=== PATIENT | male | born 1930 | race Caucasian/White ===

== ENCOUNTER 2018-01-05 08:07 | Inpatient (IN) | payer MEDICARE ==
[~2018-01-05] VITALS: Ht 170.2 cm; Wt 68.0 kg
[2018-01-05 08:32] LABS: BASOPHILS % (AUTO) 0.4 % (0.0-5.0); HEMATOCRIT 37.7 % (42-54); LYMPHOCYTES % (AUTO) 5.4 % (21.0-51.0); MEAN CORPUSCULAR HEMOGLOBIN 31.1 pg (27.0-33.0); MEAN CORPUSCULAR HGB CONC 35.1 g/dL (32.0-36.0); MEAN CORPUSCULAR VOLUME 88.8 fL (79-99); MONOCYTES % (AUTO) 6.9 % (3.0-13.0); NEUTROPHILS % (AUTO) 86.3 % (40.0-77.0); PLATELET COUNT (AUTO) 272 K/uL (130-400); RED BLOOD CELL COUNT(AUTO) 4.25 MIL/uL (4.50-6.20); RED CELL DISTRIBUTION WIDTH 13.5 % (11.0-15.5); WHITE BLOOD COUNT (AUTO) 10.7 K/uL (4.8-10.8)
[2018-01-05 08:51] LABS: CREATININE 1.7 mg/dL (0.5-1.5); POTASSIUM 4.2 mmol/L (3.5-5.1)
[2018-01-05 09:05] LABS: ALBUMIN 2.6 g/dL (3.5-5.0); BILIRUBIN,TOTAL 0.4 mg/dL (0.2-1.0); TOTAL PROTEIN, SERUM 6.3 g/dL (6.0-8.3)
[2018-01-05 09:49] LABS: CREATINE KINASE MB 0.8 ng/mL (0.5-3.6)
[2018-01-05] MEDS ORDERED: LEVOFLOXACIN 750 MG/D5W 150 ML 150 ML ONE (11:52)
[2018-01-05] MEDS ORDERED: IPRATROPIUM/ALBUTEROL SULFATE 3 ML SOLUTION IH ONE (12:31)
[2018-01-05] MEDS ORDERED: DOXYCYCLINE 100MG+NS 250ML 250 ML IV ONE (13:34)
[2018-01-05] MEDS ORDERED: METHYLPREDNISOLONE SOD SUCC 40MG/ML 1ML ONE (13:34)
[2018-01-05] MEDS ORDERED: ACETAMINOPHEN-CODEINE 300/30MG TAB PO PRN ×2 (14:00)
[2018-01-05] MEDS ORDERED: GUAIFENESIN-DM 200/20 MG 10 ML PO PRN (14:00)
[2018-01-05] MEDS ORDERED: ONDANSETRON HCL 4 MG/2 ML VIAL IV PRN (14:00)
[2018-01-05] MEDS ORDERED: HYDRALAZINE HCL 20 MG/ML VIAL IV PRN (14:00)
[2018-01-05] MEDS ORDERED: MORPHINE SULFATE 2 MG/ML 1ML SYG IV PRN (14:00)
[2018-01-05] MEDS: METHYLPREDNISOLONE SOD SUCC 125MG/2ML VIAL IV SCH ×2 (14:00→22:08)
[2018-01-05] MEDS ORDERED: ACETAMINOPHEN 325 MG TAB PO PRN ×2 (14:00)
[2018-01-05] MEDS ORDERED: MORPHINE SULFATE 4 MG/1ML SYG IV PRN (14:00)
[2018-01-05] MEDS ORDERED: LACTULOSE 20 GM/30 ML UDCUP PO PRN (14:00)
[2018-01-05] MEDS ORDERED: NITROGLYCERIN 0.4 MG SL TAB SL PRN (14:00)
[2018-01-05] MEDS ORDERED: MAG HYDROX/AL HYDROX/SIMETH ES 30 ML SUSP UDCUP PO PRN (14:00)
[2018-01-05] MEDS ORDERED: SODIUM CHLORIDE 0.9% 1000ML 1,000 ML IV SCH (14:56)
[2018-01-05] MEDS ORDERED: POTASSIUM CHLORIDE 10% ELIXIR 20 MEQ/15 ML UDCUP PO PRN (15:00)
[2018-01-05] MEDS ORDERED: POTASSIUM CHLORIDE 20MEQ/100ML 100 ML IV PRN (15:00)
[2018-01-05] MEDS ORDERED: LIDOCAINE HCL-MPF 1% 2ML VIAL IVP PRN (15:00)
[2018-01-05] MEDS ORDERED: POTASSIUM CHLORIDE 20 MEQ ERTAB PO PRN (15:00)
[2018-01-05 16:55] VITALS: BP 153/77
[2018-01-05] MEDS ORDERED: LISI-613 PO (16:56)
[2018-01-05] MEDS ORDERED: ALLO100T PO (16:56)
[2018-01-05] MEDS ORDERED: ASPI-1197 PO (16:56)
[2018-01-05] MEDS ORDERED: ROSU20TA PO (16:56)
[2018-01-05] MEDS ORDERED: TAMS0.4C32 PO (16:56)
[2018-01-05] MEDS ORDERED: AMLO5TAB2 PO (16:56)
[2018-01-05] MEDS ORDERED: METO25TA6 PO (16:56)
[2018-01-05] MEDS: IPRATROPIUM/ALBUTEROL SULFATE 3 ML SOLUTION IH SCH ×2 (19:18→23:57)
[2018-01-05 19:51] VITALS: BP 149/91
[2018-01-05 23:41] VITALS: BP 117/69
[2018-01-05] MEDS: ACETYLCYSTEINE 20% 200MG/ML 4ML VIAL IH SCH (23:57)
[2018-01-06] MEDS ORDERED: DOXYCYCLINE 100MG+NS 250ML 250 ML IV SCH
[2018-01-06 04:31] VITALS: BP 124/71
[2018-01-06 05:33] LABS: HEMATOCRIT 36.2 % (42-54); MEAN CORPUSCULAR HEMOGLOBIN 29.9 pg (27.0-33.0); MEAN CORPUSCULAR HGB CONC 33.6 g/dL (32.0-36.0); PLATELET COUNT (AUTO) 295 K/uL (130-400); RED BLOOD CELL COUNT(AUTO) 4.07 MIL/uL (4.50-6.20); RED CELL DISTRIBUTION WIDTH 13.8 % (11.0-15.5); WHITE BLOOD COUNT (AUTO) 11.6 K/uL (4.8-10.8)
[2018-01-06 05:35] LABS: CREATININE 1.7 mg/dL (0.5-1.5); POTASSIUM 3.9 mmol/L (3.5-5.1)
[2018-01-06] MEDS: METHYLPREDNISOLONE SOD SUCC 125MG/2ML VIAL IV SCH (05:56)
[2018-01-06] MEDS: ACETYLCYSTEINE 20% 200MG/ML 4ML VIAL IH SCH ×3 (06:02→23:27)
[2018-01-06] MEDS: IPRATROPIUM/ALBUTEROL SULFATE 3 ML SOLUTION IH SCH ×4 (06:02→23:27)
[2018-01-06 08:00] VITALS: BP 142/73
[2018-01-06] MEDS: ASPIRIN 81MG TAB.CHEW PO SCH ×2 (08:14→11:17)
[2018-01-06] MEDS: FAMOTIDINE 20MG TAB 20 MG TAB PO SCH (08:14)
[2018-01-06] MEDS ORDERED: METOPROLOL TARTRATE 25 MG TAB ONE (11:15)
[2018-01-06] MEDS ORDERED: METHYLPREDNISOLONE SOD SUCC 40MG/ML 1ML IVP SCH (11:15)
[2018-01-06] MEDS ORDERED: LISINOPRIL 20 MG TABLET ONE (11:15)
[2018-01-06] MEDS ORDERED: AMLODIPINE BESYLATE 5 MG TAB PO ONE (11:15)
[2018-01-06] MEDS: METOPROLOL TARTRATE 25 MG TAB PO SCH ×2 (11:17→20:28)
[2018-01-06] MEDS: AMLODIPINE BESYLATE 5 MG TAB PO SCH (11:18)
[2018-01-06] MEDS: LISINOPRIL 20 MG TABLET PO SCH (11:19)
[2018-01-06 12:00] VITALS: BP 166/87
[2018-01-06] MEDS ORDERED: METHYLPREDNISOLONE SOD SUCC 125MG/2ML VIAL IV SCH (14:00)
[2018-01-06] MEDS: METHYLPREDNISOLONE SOD SUCC 40MG/ML 1ML IVP SCH ×2 (14:06→23:41)
[2018-01-06 16:00] VITALS: BP 136/71
[2018-01-06 20:00] VITALS: BP 142/66
[2018-01-06] MEDS: TAMSULOSIN HCL 0.4 MG CAP.ER.24H PO SCH (20:28)
[2018-01-06] MEDS: ATORVASTATIN CALCIUM 40 MG TABLET PO SCH (20:28)
[2018-01-06] MEDS: BUDESONIDE 0.5 MG/2 ML INH IH SCH (22:04)
[2018-01-06 23:49] VITALS: BP 120/56
[2018-01-07 04:00] VITALS: BP 119/62
[2018-01-07 05:16] LABS: HEMATOCRIT 36.5 % (42-54); MEAN CORPUSCULAR HEMOGLOBIN 30.2 pg (27.0-33.0); MEAN CORPUSCULAR HGB CONC 33.8 g/dL (32.0-36.0); MEAN CORPUSCULAR VOLUME 89.3 fL (79-99); PLATELET COUNT (AUTO) 345 K/uL (130-400); RED BLOOD CELL COUNT(AUTO) 4.09 MIL/uL (4.50-6.20)
[2018-01-07 05:28] LABS: CREATININE 1.5 mg/dL (0.5-1.5)
[2018-01-07] MEDS: IPRATROPIUM/ALBUTEROL SULFATE 3 ML SOLUTION IH SCH ×4 (05:55→23:16)
[2018-01-07] MEDS: ACETYLCYSTEINE 20% 200MG/ML 4ML VIAL IH SCH (05:55)
[2018-01-07] MEDS: BUDESONIDE 0.5 MG/2 ML INH IH SCH ×2 (05:56→18:11)
[2018-01-07 06:09] LABS: BAND NEUTROPHILS % (MANUAL) 3 % (0-2); LYMPHOCYTES % (MANUAL) 2 % (22-44); MAN.DIFF COMMENT-IMPRESSION MANUAL DIFFERENTIAL; MONOCYTES % (MANUAL) 2 % (2-9); PLATELET MORPHOLOGY COMMENT ADEQUATE; SEGMENTED NEUTROPHILS % 93 % (40-70)
[2018-01-07] MEDS: METHYLPREDNISOLONE SOD SUCC 40MG/ML 1ML IVP SCH ×3 (06:51→21:34)
[2018-01-07 07:30] VITALS: BP 116/69
[2018-01-07] MEDS: ASPIRIN 81MG TAB.CHEW PO SCH (08:24)
[2018-01-07] MEDS: METOPROLOL TARTRATE 25 MG TAB PO SCH ×2 (08:25→21:33)
[2018-01-07] MEDS: LISINOPRIL 20 MG TABLET PO SCH (08:25)
[2018-01-07] MEDS: AMLODIPINE BESYLATE 5 MG TAB PO SCH (08:25)
[2018-01-07] MEDS: ALLOPURINOL 100 MG TABLET PO SCH (08:25)
[2018-01-07] MEDS: FAMOTIDINE 20MG TAB 20 MG TAB PO SCH (08:25)
[2018-01-07 11:00] VITALS: BP 131/59
[2018-01-07] MEDS: LEVOFLOXACIN 500 MG/D5W 100 ML 100 ML IV SCH (14:39)
[2018-01-07 16:00] VITALS: BP 114/64
[2018-01-07] MEDS ORDERED: VANCOMYCIN PROTOCOL PER PHARMACY IV SCH (16:30)
[2018-01-07] MEDS ORDERED: [UNRECOGNIZED DRUG - OTHER] IV ONE (18:00)
[2018-01-07] MEDS ORDERED: VANCOMYCIN 1 GM IV ONE (18:00)
[2018-01-07 19:44] VITALS: BP 110/51
[2018-01-07] MEDS: ATORVASTATIN CALCIUM 40 MG TABLET PO SCH (21:33)
[2018-01-07] MEDS: TAMSULOSIN HCL 0.4 MG CAP.ER.24H PO SCH (21:33)
[2018-01-08 00:07] VITALS: BP 104/60
[2018-01-08 04:45] VITALS: BP 117/71
[2018-01-08 05:04] LABS: MEAN CORPUSCULAR HEMOGLOBIN 30.1 pg (27.0-33.0); MEAN CORPUSCULAR HGB CONC 33.7 g/dL (32.0-36.0); MEAN CORPUSCULAR VOLUME 89.1 fL (79-99); PLATELET COUNT (AUTO) 346 K/uL (130-400); RED BLOOD CELL COUNT(AUTO) 3.81 MIL/uL (4.50-6.20); WHITE BLOOD COUNT (AUTO) 21.4 K/uL (4.8-10.8)
[2018-01-08] MEDS: VANCOMYCIN 500MG+NS 100ML 100 ML IV SCH ×2 (05:05→17:51)
[2018-01-08] MEDS: METHYLPREDNISOLONE SOD SUCC 40MG/ML 1ML IVP SCH (05:05)
[2018-01-08 05:16] LABS: CREATININE 1.6 mg/dL (0.5-1.5); POTASSIUM 4.4 mmol/L (3.5-5.1)
[2018-01-08] MEDS: IPRATROPIUM/ALBUTEROL SULFATE 3 ML SOLUTION IH SCH ×4 (06:16→23:30)
[2018-01-08] MEDS: BUDESONIDE 0.5 MG/2 ML INH IH SCH ×2 (06:29→18:09)
[2018-01-08 08:00] VITALS: BP 122/56
[2018-01-08] MEDS: METOPROLOL TARTRATE 25 MG TAB PO SCH ×2 (08:21→20:44)
[2018-01-08] MEDS: ASPIRIN 81MG TAB.CHEW PO SCH ×2 (08:21→09:00)
[2018-01-08] MEDS: LISINOPRIL 20 MG TABLET PO SCH (08:21)
[2018-01-08] MEDS: AMLODIPINE BESYLATE 5 MG TAB PO SCH (08:21)
[2018-01-08] MEDS: ALLOPURINOL 100 MG TABLET PO SCH (08:21)
[2018-01-08] MEDS: FAMOTIDINE 20MG TAB 20 MG TAB PO SCH (08:21)
[2018-01-08 12:00] VITALS: BP 117/55
[2018-01-08 16:00] VITALS: BP 132/65
[2018-01-08 18:05] LABS: APPEARANCE,URINE Clear (CLEAR); BILIRUBIN,URINE Negative (NEGATIVE); COLOR,URINE Yellow (YELLOW); GLUCOSE, URINE (UA) 250 mg/dL (NEGATIVE); KETONES,URINE Negative (NEGATIVE); LEUKOCYTE ESTERASE ,URINE Negative (NEGATIVE); NITRATE,URINE Negative (NEGATIVE); OCCULT BLOOD,URINE Negative (NEGATIVE); PROTEIN,URINE POS 1+ (NEGATIVE); UROBILINOGEN,URINE 0.2 mg/dL (0.2-1.0)
[2018-01-08 18:14] LABS: BACTERIA,URINE Rare /HPF (None Seen); RBC,URINE None Seen /HPF (0-1); SQUAMOUS EPITHELIAL CELL,UR 0-2 /HPF (0-2); WBC,URINE 0-1 /HPF (0-1)
[2018-01-08 19:30] VITALS: BP 121/77
[2018-01-08] MEDS: TAMSULOSIN HCL 0.4 MG CAP.ER.24H PO SCH (20:44)
[2018-01-08] MEDS: ATORVASTATIN CALCIUM 40 MG TABLET PO SCH (20:44)
[2018-01-09] VITALS (7 sets, daily range): BP systolic 103–142; BP diastolic 53–77
[2018-01-09 06:09] LABS: HEMATOCRIT 35.4 % (42-54); MEAN CORPUSCULAR HEMOGLOBIN 30.8 pg (27.0-33.0); MEAN CORPUSCULAR HGB CONC 34.6 g/dL (32.0-36.0); MEAN CORPUSCULAR VOLUME 89.2 fL (79-99); PLATELET COUNT (AUTO) 360 K/uL (130-400); RED BLOOD CELL COUNT(AUTO) 3.97 MIL/uL (4.50-6.20); WHITE BLOOD COUNT (AUTO) 18.5 K/uL (4.8-10.8)
[2018-01-09] MEDS: IPRATROPIUM/ALBUTEROL SULFATE 3 ML SOLUTION IH SCH ×4 (06:11→23:26)
[2018-01-09] MEDS: BUDESONIDE 0.5 MG/2 ML INH IH SCH ×2 (06:23→19:32)
[2018-01-09] MEDS: VANCOMYCIN 500MG+NS 100ML 100 ML IV SCH ×2 (06:27→17:56)
[2018-01-09] MEDS: ASPIRIN 81MG TAB.CHEW PO SCH ×2 (09:00→10:12)
[2018-01-09] MEDS: FAMOTIDINE 20MG TAB 20 MG TAB PO SCH (10:11)
[2018-01-09] MEDS: LISINOPRIL 20 MG TABLET PO SCH (10:12)
[2018-01-09] MEDS: AMLODIPINE BESYLATE 5 MG TAB PO SCH (10:12)
[2018-01-09] MEDS: METOPROLOL TARTRATE 25 MG TAB PO SCH ×2 (10:12→20:21)
[2018-01-09] MEDS: ALLOPURINOL 100 MG TABLET PO SCH (10:12)
[2018-01-09] MEDS: LEVOFLOXACIN 500 MG/D5W 100 ML 100 ML IV SCH (14:28)
[2018-01-09] MEDS: TAMSULOSIN HCL 0.4 MG CAP.ER.24H PO SCH (20:21)
[2018-01-09] MEDS: ATORVASTATIN CALCIUM 40 MG TABLET PO SCH (20:21)
[2018-01-10 03:55] VITALS: BP 129/78
[2018-01-10 04:57] LABS: HEMATOCRIT 37.8 % (42-54); MEAN CORPUSCULAR HEMOGLOBIN 29.4 pg (27.0-33.0); MEAN CORPUSCULAR VOLUME 89.2 fL (79-99); PLATELET COUNT (AUTO) 356 K/uL (130-400); RED BLOOD CELL COUNT(AUTO) 4.24 MIL/uL (4.50-6.20); RED CELL DISTRIBUTION WIDTH 14.1 % (11.0-15.5); WHITE BLOOD COUNT (AUTO) 13.7 K/uL (4.8-10.8)
[2018-01-10 05:13] LABS: CREATININE 1.5 mg/dL (0.5-1.5); POTASSIUM 4.2 mmol/L (3.5-5.1)
[2018-01-10] MEDS: VANCOMYCIN 500MG+NS 100ML 100 ML IV SCH (06:07)
[2018-01-10] MEDS: BUDESONIDE 0.5 MG/2 ML INH IH SCH ×2 (06:10→18:35)
[2018-01-10] MEDS: IPRATROPIUM/ALBUTEROL SULFATE 3 ML SOLUTION IH SCH ×4 (06:10→23:46)
[2018-01-10 07:40] VITALS: BP 138/82
[2018-01-10] MEDS: ASPIRIN 81MG TAB.CHEW PO SCH ×2 (08:25)
[2018-01-10] MEDS: METOPROLOL TARTRATE 25 MG TAB PO SCH ×2 (08:25→19:53)
[2018-01-10] MEDS: LISINOPRIL 20 MG TABLET PO SCH (08:25)
[2018-01-10] MEDS: AMLODIPINE BESYLATE 5 MG TAB PO SCH (08:25)
[2018-01-10] MEDS: ALLOPURINOL 100 MG TABLET PO SCH (08:25)
[2018-01-10] MEDS: FAMOTIDINE 20MG TAB 20 MG TAB PO SCH (08:25)
[2018-01-10 11:17] VITALS: BP 132/67
[2018-01-10 16:00] VITALS: BP 124/59
[2018-01-10] MEDS ORDERED: COMPOUND IV REFRIGERATED 1 EACH IVSOLN MISC PRN (16:00)
[2018-01-10] MEDS: VANCOMYCIN 750MG + NS 250 ML IV SCH ×2 (17:40)
[2018-01-10] MEDS: TAMSULOSIN HCL 0.4 MG CAP.ER.24H PO SCH (19:53)
[2018-01-10] MEDS: ATORVASTATIN CALCIUM 40 MG TABLET PO SCH (19:53)
[2018-01-10 20:00] VITALS: BP 160/80
[2018-01-11] VITALS: BP_SYST 136; BP_SYST 151; BP_DIAS 70; BP_DIAS 76
[2018-01-11 04:00] VITALS: BP 128/61
[2018-01-11 05:14] LABS: HEMATOCRIT 36.2 % (42-54); MEAN CORPUSCULAR HEMOGLOBIN 30.9 pg (27.0-33.0); MEAN CORPUSCULAR HGB CONC 34.6 g/dL (32.0-36.0); MEAN CORPUSCULAR VOLUME 89.1 fL (79-99); NUCLEATED RED BLOOD CELLS 0.1 % (0.0-0.19); PLATELET COUNT (AUTO) 324 K/uL (130-400); RED BLOOD CELL COUNT(AUTO) 4.07 MIL/uL (4.50-6.20); RED CELL DISTRIBUTION WIDTH 14.3 % (11.0-15.5); WHITE BLOOD COUNT (AUTO) 13.6 K/uL (4.8-10.8)
[2018-01-11 05:28] LABS: CREATININE 1.4 mg/dL (0.5-1.5); POTASSIUM 4.2 mmol/L (3.5-5.1)
[2018-01-11] MEDS: IPRATROPIUM/ALBUTEROL SULFATE 3 ML SOLUTION IH SCH ×2 (05:28→11:49)
[2018-01-11] MEDS: BUDESONIDE 0.5 MG/2 ML INH IH SCH (05:41)
[2018-01-11] MEDS: VANCOMYCIN 750MG + NS 250 ML IV SCH ×2 (05:42)
[2018-01-11 07:47] VITALS: BP 103/75
[2018-01-11] MEDS: ASPIRIN 81MG TAB.CHEW PO SCH ×2 (08:23→08:35)
[2018-01-11] MEDS: METOPROLOL TARTRATE 25 MG TAB PO SCH (08:35)
[2018-01-11] MEDS: FAMOTIDINE 20MG TAB 20 MG TAB PO SCH (08:35)
[2018-01-11] MEDS: ALLOPURINOL 100 MG TABLET PO SCH (08:35)
== END 2018-01-11 12:02 | disposition home or self-care (01) | DRG 871 ==
LOC: EDH 08:07 → EDHIP 12:18 → OBSVTOIN 12:18 → 4BH 16:43
PROVIDERS: ADMIT Internal Medicine; ATTEND Internal Medicine
DX: A41.89 Other specified sepsis (principal); J18.9 Pneumonia, unspecified organism; N17.9 Acute kidney failure, unspecified; J44.0 Chronic obstructive pulmonary disease with (acute) lower respiratory infection; J44.1 Chronic obstructive pulmonary disease with (acute) exacerbation; J98.11 Atelectasis; B96.89 Other specified bacterial agents as the cause of diseases classified elsewhere; B95.8 Unspecified staphylococcus as the cause of diseases classified elsewhere; I12.9 Hypertensive chronic kidney disease with stage 1 through stage 4 chronic kidney disease, or unspecified chronic kidney disease; I25.10 Atherosclerotic heart disease of native coronary artery without angina pectoris; J20.9 Acute bronchitis, unspecified; N18.9 Chronic kidney disease, unspecified; I25.2 Old myocardial infarction; Z95.5 Presence of coronary angioplasty implant and graft; Z87.891 Personal history of nicotine dependence
CPT/HCPCS: 36415; 71045; 71046; 71250; 80048; 80053; 80202; 81001; 82550; 82553; 83880; 84484; 85007; 85025; 85027; 87040; 87186; 93005; 93306; 94640; 94664; J1956; J2920; J2930; J3370; J3490; J7030; J7608